=== PATIENT | female | born 1980 | race Caucasian/White ===

== ENCOUNTER 2016-09-02 08:13 | Emergency (ER) | payer OTHER ==
[~2016-09-02] VITALS: Ht 167.6 cm; Wt 60.8 kg
--- NOTE | 2016-09-02 08:22 | ED UPPER/LOWER EXTREMITY COMPL ---
History of Present Illness General Chief Complaint: Hand or Wrist Injury Stated Complaint: R HAND PAIN Source: patient Exam Limitations: no limitations Vital Signs & Intake/Output Vital Signs & Intake/Output Vital Signs Date Time Temp Pulse Resp B/P Pulse O2 O2 Flow FiO2 Ox Delivery Rate 09/02 0822 100 Room Air 09/02 0817 97.8 80 20 123/76 98 Room Air Allergies Coded Allergies: MDX - Cefdinir (From OMNICEF) (HIVES 09/04/12) MDX - Clindamycin (From CLEOCIN) (HIVES 09/04/12) MDX - Doxycycline (DOXYCYCLINE) (HIVES 09/04/12) MDX - PCN (penicillin) (PCN (PENICILLIN)) (HIVES 09/04/12) MDX - Tetracycline (TETRACYCLINE) (HIVES 09/04/12) Triage Note: RIGHT HAND PAIN AFTER PUNCHING A WALL LAST NIGHT. PT STATES HAND AND WRIST PAIN. NO OBVIOUS DEFORMITY NOTED Triage Nurses Notes Reviewed? yes Onset: Abrupt Duration: constant Timing: single episode today Severity: severe Severity Numbers: 7 Method of Injury: direct blow : No Patient currently breastfeeds: No HPI: Patient is a 35-year-old female who presents emergency room stating that yesterday patient was angry where she subsequently punched a wall with her right hand resulting acute onset of 7/10 medial fourth and fifth digit metacarpal hand pain and medial wrist pain. Patient states that gripping things make worsened wrist movements make worse. Skin is intact. Patient is right arm dominant. Patient has been taking ibuprofen with mild relief of symptoms Past History Travel History Traveled to [place] past 21 day No Medical History Any Pertinent Medical History? see below for history Musculoskeletal: CARPEL TUNNEL Psychiatric: anxiety Endocrine: hyperthyroidism Surgical History Surgical History: non-contributory Psychosocial History What is your primary language Armenian Tobacco Use: Never used ETOH Use: occasional use Illicit Drug Use: denies illicit drug use Family History Hx Contributory? No Review of Systems Review of Systems Constitutional: Reports: no symptoms. EENTM: Reports: no symptoms. Respiratory: Reports: no symptoms. Cardiovascular: Reports: no symptoms. Gastrointestinal/Abdominal: Reports: no symptoms. Genitourinary: Reports: no symptoms. Musculoskeletal: Reports: see HPI, joint pain. Skin: Reports: no symptoms. Neurological/Psychological: Reports: no symptoms. Hematologic/Endocrine: Reports: no symptoms. Immunological: Reports: no symptoms. All Other Systems: Reviewed and Negative Physical Exam Physical Exam General Appearance: no apparent distress, alert Neurologic/Tendon: normal sensation, normal motor functions, normal tendon functions, responds to pain, no evidence tendon injury Skin: intact, normal color, warm/dry Comments: Well-developed well-nourished no apparent distress. HEENT: Atraumatic, extraocular motion intact Neck: Supple, no lymphadenopathy Back: Nontender Respiratory: No respiratory distress Extremities: Right elbow normal inspection nontender full active range of motion Right wrist normal inspection generalized point tenderness noted, decreased active range of motion noted with flexion and extension Right hand -normal inspection fifth metacarpal point tenderness noted 1-5 phalange nontender Right upper extremity radial pulse +2 dermatomes intact capillary refill intact Neuro: Alert and oriented x3 Psych: Mood affect normal, normal memory normal judgment. Progress Differential Diagnosis: arterial insufficiency, compartment syndrome, contusion, dislocation, DVT, fracture, gout, septic arthritis, sprain, tendon injury Plan of Care: Orders Procedure Date/time Status URINE 09/03 819 Active On x-ray there was a noted fifth metacarpal fracture of the right hand. Ulnar gutter splint was applied by me. PRE/Post neurovascular was intact. Patient tolerated well. Patient was strongly advised to follow up with orthopedic doctor as directed (CARA JEAN,GEOVANNA) Diagnostic Imaging: Viewed by Me: Radiology Read. Radiology Impression: acute abnormality, fracture Comments: PATIENT: NESTOR BIRMINGHAM PRESENT AGE: 35 PATIENT ACCOUNT NO: [id number] : 82 LOCATION: [facility] ORDERING PHYSICIAN: GEOVANNA JEAN SERVICE DATE: 09/02/16 EXAM TYPE: RAD - XRY-HAND, RIGHT; XRY-WRIST COMPLETE-RIGHT EXAMINATION: XR HAND, RIGHT XR WRIST, RIGHT CLINICAL INFORMATION: Pain after trauma. Evaluate for fracture. COMPARISON: None TECHNIQUE: Right wrist, 4 views Right hand, 3 views FINDINGS: Right wrist: Distal radius, ulna and radioulnar joint are intact. Carpal bones have normal shape and alignment. The intercarpal joint spaces are maintained. No focal soft tissue swelling. Right hand: Nondisplaced fracture of the base of the fifth metacarpal extends to the medial margin of the hamate-metacarpal joint. Otherwise, metacarpals and phalanges are unremarkable. Joint spaces are well-preserved throughout the hand. IMPRESSION: Nondisplaced fracture at the base of the fifth metacarpal. Departure Departure Disposition: HOME OR SELF CARE Condition: Stable Clinical Impression Primary Impression: Fracture of fifth metacarpal bone of right hand Referrals: PAT HOOPER,MAL MARCANO MD,JAZLYN (PCP/Family) Additional Instructions: Begin [id number] ibuprofen for pain and inflammation. Today please call orthopedic Mal Medrano MD to make an appointment to be seen for further evaluation treatment. Continue to use the splint has been applied to the emergency room at all times. If symptoms worsen return to emergency room. Departure Forms: Customer Survey General Discharge Information Procedures Splinting Location: [facility] Manual Alignment Performed: No Hand-Made Type: orthoglass Splint: ULNAR GUTTER Splint Applied By: splint applied by me Pre-Proc Neuro Vasc Exam: normal Post-Proc Neuro Vasc Exam: normal
--- NOTE | 2016-09-02 08:57 | RADIOLOGY REPORT ---
EXAMINATION: XR HAND, RIGHT XR WRIST, RIGHT CLINICAL INFORMATION: Pain after trauma. Evaluate for fracture. COMPARISON: None TECHNIQUE: Right wrist, 4 views Right hand, 3 views FINDINGS: Right wrist: Distal radius, ulna and radioulnar joint are intact. Carpal bones have normal shape and alignment. The intercarpal joint spaces are maintained. No focal soft tissue swelling. Right hand: Nondisplaced fracture of the base of the fifth metacarpal extends to the medial margin of the hamate-metacarpal joint. Otherwise, metacarpals and phalanges are unremarkable. Joint spaces are well-preserved throughout the hand. IMPRESSION: Nondisplaced fracture at the base of the fifth metacarpal.
[2016-09-02 09:27] VITALS: BP 118/80
== END 2016-09-02 09:29 ==
LOC: ERH 08:13
DX: S62.340A Nondisplaced fracture of base of second metacarpal bone, right hand, initial encounter for closed fracture (principal); W22.09XA Striking against other stationary object, initial encounter; Y92.9 Unspecified place or not applicable; Y93.9 Activity, unspecified
CPT/HCPCS: 73110-RT; 73130-RT; 81025

== ENCOUNTER 2017-06-15 15:16 | Emergency (ER) | payer OTHER ==
[~2017-06-15] VITALS: Ht 167.6 cm; Wt 61.7 kg
[~2017-06-15 15:16] MED LIST: MUCINEX DM ER1 EACH PO
[2017-06-15 15:22] VITALS: BP 127/85
--- NOTE | 2017-06-15 16:04 | RADIOLOGY REPORT ---
EXAMINATION: XR CHEST CLINICAL INFORMATION: Right rib pain after cough COMPARISON: 06/14/2017 TECHNIQUE: 2 views of the chest were obtained. FINDINGS: Lung volumes are symmetric. No focal consolidation is seen. No evidence of pneumothorax, pleural effusion, or pulmonary edema. The cardiomediastinal contour is unremarkable. No acute osseous findings are seen. IMPRESSION: No acute findings.
--- NOTE | 2017-06-15 17:34 | ED GENERAL ADULT ---
History of Present Illness General Chief Complaint: General Adult Stated Complaint: ?RIB FX S/P COUGHING Source: patient, old records Exam Limitations: no limitations Vital Signs & Intake/Output Vital Signs & Intake/Output Vital Signs Date Time Temp Pulse Resp B/P B/P Pulse O2 O2 Flow FiO2 Mean Ox Delivery Rate 06/15 1522 98.3 99 18 127/85 100 Room Air Allergies Coded Allergies: Penicillins (HIVES 06/15/17) cefdinir (HIVES 06/15/17) clindamycin (HIVES 06/15/17) doxycycline (HIVES 06/15/17) tetracycline (HIVES 06/15/17) Reconcile Medications Codeine Phosphate/Guaifenesi (Coditussin AC Liquid) 10 MG-200 MG/5 ML LIQUID 5 ML PO BID PRN cough Guaifenesin/Dextromethorphan (Mucinex Dm ER 1,200-60 MG Tab) 1,200 MG-60 MG TBMP.12HR 1 TAB PO BID PRN cough Prednisone 20 MG TABLET 1 TAB PO BID bronchitis Triage Note: PT TO ER C/C RIGHT RIB PAIN S/P COUGHING. SEEN IN ER FOR COUGH YESTERDAY, DX WITH ACUTE BRONCHITIS Triage Nurses Notes Reviewed? yes Onset: Gradual Duration: week(s): Timing: recent history Injury Environment: home Severity: severe Modifying Factors: Worsens With: other (inspiration). : No Patient currently breastfeeds: No HPI: 36-year-old female presents to emergency department complaining of right anterior rib pain worsening last night after a coughing fit. Patient was seen and evaluated here yesterday and was informed she had bronchitis, she was prescribed a cough suppressant however her insurance did not cover this medication and she could not pick it up from the pharmacy. Patient states that after her visit here she had a coughing fit and had severe right anterior rib cage pain, worse with inspiration. Patient thought that she could have broken a rib. Patient reports that her cough has been present for almost one month now, at times productive of yellow sputum. She denies recent fevers, chills, abdominal pain, nausea, vomiting. (Alison JEAN,Trista Ham) Past History Travel History Traveled to [place] past 21 day No Medical History Any Pertinent Medical History? see below for history Musculoskeletal: CARPEL TUNNEL Psychiatric: anxiety Endocrine: hyperthyroidism Cancer(s): HASHIMOTOS LYMPHOMA Surgical History Surgical History: non-contributory Psychosocial History What is your primary language Slovak Tobacco Use: Current Daily Use Daily Tobacco Use Amount/Type: => 5 Cigarettes daily Family History Hx Contributory? No (Trista Beebe) Review of Systems Review of Systems Constitutional: Reports: no symptoms. EENTM: Reports: no symptoms. Respiratory: Reports: see HPI. Cardiovascular: Reports: see HPI. GI: Reports: no symptoms. Genitourinary: Reports: no symptoms. Musculoskeletal: Reports: no symptoms. Skin: Reports: no symptoms. Neurological/Psychological: Reports: no symptoms. Hematologic/Endocrine: Reports: no symptoms. Immunologic/Allergic: Reports: no symptoms. All Other Systems: Reviewed and Negative (Trista Beebe) Physical Exam Physical Exam General Appearance: well developed/nourished, no apparent distress, alert, awake Head: atraumatic, normal appearance Eyes: Bilateral: normal appearance. Ears, Nose, Throat: hearing grossly normal Neck: normal inspection, supple, full range of motion Respiratory: normal breath sounds, no respiratory distress, lungs clear, breath sounds are equal bilaterally in all lung summers tenderness to right anterior rib cage without ecchymosis Cardiovascular: regular rate/rhythm Gastrointestinal: normal bowel sounds, soft, non-tender, no organomegaly Back: normal inspection, normal range of motion Extremities: normal inspection Neurologic/Psych: awake, alert, oriented x 3 Skin: intact, normal color, warm/dry Core Measures ACS in differential dx? No CVA/TIA Diagnosis: No Sepsis Present: No Sepsis Focused Exam Completed? No (Trista Beebe) Progress Differential Diagnoses I considered the following diagnoses in my evaluation of the patient: [ Bronchitis, pneumonia, pneumothorax, pulmonary embolism, rib fracture, costochondritis, muscle strain] Plan of Care: Patient's x-rays without acute abnormality. No signs of pneumothorax or rib fracture. Patient likely has muscle strain resulting from her frequent coughing. Patient prescribed steroid pack for likely bronchitis and cough suppressant medication. She will also begin breathing and humidified air. Patient is in no acute distress, vital signs are stable, O2 sat 100% on RA. The patient agrees with the plan of care. The patient was discussed with Dr. Jenkins who agrees with this plan. There is a low suspicion for PE, patient is perc negative. Diagnostic Imaging: Viewed by Me: Radiology Read. Discussed w/RAD: Radiology Read. Radiology Impression: PATIENT: JOHN HUITRON PRESENT AGE: 36 PATIENT ACCOUNT NO: [id number] : 82 LOCATION: [facility] ORDERING PHYSICIAN: Kyle Garcia DO (TBS) SERVICE DATE: 06/15/17 EXAM TYPE: RAD - XRY-CHEST XRAY, TWO VIEWS EXAMINATION: XR CHEST CLINICAL INFORMATION : Right rib pain after cough COMPARISON: 06/14/2017 TECHNIQUE: 2 views of the chest were obtained. FINDINGS: Lung volumes are symmetric. No focal consolidation is seen. No evidence of pneumothorax, pleural effusion, or pulmonary edema. The cardiomediastinal contour is unremarkable. No acute osseous findings are seen. IMPRESSION: No acute findings. DICTATED BY: Venkata Gupta MD DATE/TIME DICTATED:06/15/171556 P[employer]IPMENT [employer]CH[employer]OLOGY INSTRUCTOR:NANCY DATE/TIME TRANSCRIBED:06/15/171556 CONFIDENTIAL, DO NOT COPY WITHOUT APPROPRIATE AUTHORIZATION. <Electronically signed in Other Vendor System> SIGNED BY: Venkata Gupta MD 06/15/17 1603 Initial ED EKG: none (Alison JEAN,rTista Ham) Departure Departure Disposition: HOME OR SELF CARE Condition: Stable Clinical Impression Primary Impression: Bronchitis Secondary Impressions: Rib pain Referrals: Casimiro Najera MD (PCP/Family) Additional Instructions: Take full steroid pack. Also use cough suppressant syrup for cough prevention. Follow-up with your primary care physician. Return to the emergency Department with any worsening symptoms or other concerns. Please note that there might be incidental findings in your evaluation that are unrelated to the current emergency department visit. Please notify your primary care doctor about this emergency department visit in order to obtain and review all of the testing performed so that these incidental findings can be monitored as needed. If you had an x-ray performed, please understand that some fractures may not be seen on the initial set of x-rays. If your symptoms persist you might need a repeat set of x-rays to check for such a fracture. If you had a laceration evaluated, please understand that foreign bodies such as glass or wood may not be visible to the naked eye or on plain x-rays. If the wound becomes red, swollen, increasingly more painful or if there is any drainage from the wound, please have it reevaluated by a physician for the possibility of a retained foreign body. If you're unable to follow up as outlined in the discharge instructions please return to the emergency department. Thank you for choosing the [facility] Emergency Department for your care. It was a pleasure to serve you today. Departure Forms: Customer Survey General Discharge Information Prescriptions: Current Visit Scripts Codeine Phosphate/Guaifenesi (Coditussin AC Liquid) 5 ML PO BID PRN cough #100 ML Prednisone 1 TAB PO BID #10 TAB (Trista Beebe) PA/PARAOPTOMETRIC Co-Sign Statement Statement: ED Attending supervision documentation- [] I saw and evaluated the patient. I have also reviewed all the pertinent lab results and diagnostic results. I agree with the findings and the plan of care as documented in the PA's/PARAOPTOMETRIC's documentation. [X] I have reviewed the ED Record and agree with the PA's/PARAOPTOMETRIC's documentation. [] Additions or exceptions (if any) to the PAs/PARAOPTOMETRIC's note and plan are summarized below: [] (Alice HOOPER,Sherrell) Critical Care Note Critical Care Note Critical Care Time: non-applicable (Trista Beebe)
[2017-06-15] MEDS ORDERED: PREDNISONE20 M1 PO (17:54)
[2017-06-15] MEDS ORDERED: CODITUSSIN AC473 M1 PO (17:54)
== END 2017-06-15 18:10 ==
LOC: ERH 15:16
DX: J40 Bronchitis, not specified as acute or chronic (principal); R07.81 Pleurodynia; Z72.0 Tobacco use
CPT/HCPCS: 71046